=== PATIENT | female | born 1955 | race Caucasian/White ===

== ENCOUNTER 2020-08-01 06:08 | Emergency (ER) | payer BC, MEDICARE ==
[2020-08-01 06:38] LABS: Bilirubin Negative (Negative); Blood, Urine Moderate (Negative); Glucose, Urine (Dipstick) 100 mg/dL (Negative); Ketone, Urine Negative (Negative); Leukocyte Small (Negative); Nitrite Negative (Negative); Protein, Urine (Dipstick) > or equal to 300 mg/dL (Neg-Trace); Specific Gravity, Urine 1.025 (1.005-1.030); Urobilinogen 0.2 mg/dL (Less than 2)
[2020-08-01 06:41] LABS: Clarity Clear (Clear)
[2020-08-01 06:54] LABS: Bacteria/HPF 1+ HPF (None Seen); Squamous Epithelial 0-3 HPF (0-3)
[2020-08-01] MEDS ORDERED: Ondansetron PF 4 MG/2 ML Vial ONE (07:08)
[2020-08-01] MEDS ORDERED: Ketorolac Tromethamine 30 MG/ML VIAL ONE (07:08)
[2020-08-01 07:13] LABS: #Basophils 0.1 thou/uL (0.0-0.2); #Eosinphils 0.1 thou/uL (0.0-0.7); #Lymphocytes 2.2 thou/uL (1.20-3.40); #Monocytes 1.2 thou/uL (0.11-0.59); #Neutrophils 12.4 thou/uL (1.40-6.50); %Basophils 0.5 % (0.0-1.0); %Eosinophils 0.6 % (0.0-10.0); %Lymphocytes 13.7 % (21.0-51.0); %Monocytes 7.2 % (0.0-10.0); Hemoglobin 13.6 g/dL (12.0-16.0); Mean Corpuscular HGB CONC 32.9 g/dL (32.0-36.0); Mean Corpuscular Hemoglobin 29.3 pg (27.0-31.0); Mean Platelet Volume 6.7 fL (7.4-10.4); Platelet Count 477 thou/uL (130-400); RBC Distribution Width 11.7 % (11.5-14.5); Red Blood Cell (RBC) Count 4.63 mill/uL (4.20-5.40); White Blood Cell (WBC) Count 15.9 thou/uL (4.8-10.8)
[2020-08-01 07:26] LABS: ALT (SGPT) 15 U/L (8-55); AST (SGOT) 12 U/L (5-34); Albumin 4.1 g/dL (3.4-4.8); Alkaline Phosphatase 87 U/L (40-110); Anion Gap 14 mmol/L (10-20); BUN (Urea Nitrogen) 10 mg/dL (9.8-20.1); Bilirubin, Total 0.5 mg/dL (0.2-1.2); Calc. Creatinine Clearance 0 mL/min (70-130); Calcium 9.3 mg/dL (7.8-10.44); Carbon Dioxide 27 mmol/L (23-31); Chloride 101 mmol/L (98-107); Globulin 3.8 g/dL (2.4-3.5); Glucose 236 mg/dL (80-115); Lipase 33 U/L (8-78); Potassium 3.9 mmol/L (3.5-5.1); Protein, Total 7.9 g/dL (5.8-8.1); Sodium 138 mmol/L (136-145)
[2020-08-01] MEDS ORDERED: Acetaminophen 325 MG TAB ONE (09:07)
[2020-08-01 12:49] LABS: SARS-CoV-2 PCR by NAA Not Detected (NotDetected)
== END 2020-08-01 09:43 | disposition home or self-care (01) ==
LOC: ERS 06:08
DX: N13.6 Pyonephrosis (principal); I10 Essential (primary) hypertension; E11.9 Type 2 diabetes mellitus without complications; Z79.899 Other long term (current) drug therapy; Z20.822 Contact with and (suspected) exposure to COVID-19
CPT/HCPCS: 74177; 80053; 83690; 85025; 87077; 87086; 87186; 96374; 96375; 99284; U0003; U0005; 81003; 81015; 87635; J1885; J2405

== ENCOUNTER 2020-08-04 09:10 | Day surgery (SDC) | payer BC, MEDICARE ==
[2020-08-03 13:22] VITALS: BMI 25.0
[2020-08-04] MEDS ORDERED: Levofloxacin 500 mg/D5W 100 ml Premix Bag ONE (10:02)
[2020-08-04] MEDS ORDERED: Propofol 1,000 MG/100 ML VIAL IV ONE (10:56)
[2020-08-04] MEDS ORDERED: Midazolam HCl 2 mg/2 ml Vial ONE (10:56)
[2020-08-04] MEDS ORDERED: Fentanyl 100 MCG/2 ML VIAL ONE (10:56)
[2020-08-04] MEDS ORDERED: Iothalamate Meglumine 60% 50 ML VIAL FS ONE (10:56)
[2020-08-04] MEDS ORDERED: PROPOFOL 200 MG/20 ML VIAL ONE (11:10)
[2020-08-04] MEDS ORDERED: Oxybutynin 5 MG TAB ONE (12:31)
[2020-08-04] MEDS ORDERED: Ketorolac Tromethamine 30 MG/ML VIAL ONE (12:41)
[2020-08-04] MEDS ORDERED: Morphine 2 MG/ML VIAL ONE (13:26)
[2020-08-04] MEDS ORDERED: Ondansetron PF 4 MG/2 ML Vial ONE (13:27)
[2020-08-04] MEDS ORDERED: HYDROcodone/Acetaminophen 5/325 mg Tablet ONE (14:44)
[2020-08-04] MEDS ORDERED: Metoclopramide HCl 10 MG/2 ML VIAL ONE (15:39)
== END 2020-08-04 16:40 | disposition home or self-care (01) ==
LOC: SDC 09:10
PROVIDERS: ATTEND Urology
PROC: 0T778DZ Dilation of Left Ureter with Intraluminal Device, Via Natural or Artificial Opening Endoscopic (ICD-10-PCS; principal; 2020-08-04)
DX: N13.2 Hydronephrosis with renal and ureteral calculous obstruction (principal); Q62.5 Duplication of ureter; N81.10 Cystocele, unspecified; I10 Essential (primary) hypertension; E11.9 Type 2 diabetes mellitus without complications; Z79.84 Long term (current) use of oral hypoglycemic drugs; Z79.899 Other long term (current) drug therapy; Z91.018 Allergy to other foods; Z88.8 Allergy status to other drugs, medicaments and biological substances
CPT/HCPCS: 36416; 74420; 93005; 93010; J1885; J1956; J2250; J2270; J2405; J2704; J2765; J3010; Q9961

== ENCOUNTER 2020-08-14 14:56 | Outpatient (CLI) | payer BC, MEDICARE | END 2020-08-14 14:57 | disposition home or self-care (01) | LOC: BICCT 14:56 | PROVIDERS: ATTEND Urology | DX: D44.12 Neoplasm of uncertain behavior of left adrenal gland (principal); D35.02 Benign neoplasm of left adrenal gland; N13.30 Unspecified hydronephrosis; N13.4 Hydroureter | CPT/HCPCS: 74170 ==

== ENCOUNTER 2021-02-24 15:55 | Outpatient (CLI) | payer BC, MEDICARE | END 2021-02-24 15:56 | disposition home or self-care (01) | LOC: BICRAD 15:55 | PROVIDERS: ATTEND Urology | DX: N20.1 Calculus of ureter (principal) | CPT/HCPCS: 74018 ==

== ENCOUNTER 2023-06-20 15:06 | Outpatient (CLI) | payer BC, MEDICARE | END 2023-06-20 15:07 | disposition home or self-care (01) | LOC: CT 15:06 | PROVIDERS: ATTEND Family Medicine | DX: S22.060A Wedge compression fracture of T7-T8 vertebra, initial encounter for closed fracture (principal); M47.814 Spondylosis without myelopathy or radiculopathy, thoracic region | CPT/HCPCS: 72128 ==